=== PATIENT | female | born 1995 | race Caucasian/White ===

== ENCOUNTER 2017-04-03 17:15 | Inpatient (IN) ==
[2017-04-03] MEDS ORDERED: 0.9 % Sodium Chloride 1,000 ML IVC ONE (18:05)
[2017-04-03] MEDS ORDERED: Ondansetron 4 MG/2 ML VIAL IVP ONE ×2 (18:08→20:59)
[2017-04-03] MEDS ORDERED: *HR* Morphine 2 MG/ML SYRINGE IVP ONE (18:08)
[2017-04-03 18:33] LABS: Eosinophils % 0.1 %; Hematocrit 41.1 % (35.3-44.9); Hemoglobin 13.4 g/dL (11.5-15.4); Immature Granulocytes % 0.2 % (0-4); Lymphocytes % 17.3 %; Mean Corpuscular HGB Conc 32.6 g/dL (31.6-35.5); Mean Corpuscular Hemoglobin 29.5 pg (28.0-33.3); Mean Corpuscular Volume 90.3 fL (83.0-100.0); Mean Platelet Volume 10.4 fL (9.4-12.4); Monocytes % 6.1 %; Platelet Count 194 K/mcL (140-400); Red Blood Count 4.55 M/mcL (3.82-4.97); Red Cell Distribution Width 12.7 % (11.5-14.5)
[2017-04-03 18:34] LABS: Basophils % 0.3 %; Lymphocytes # 2.1 K/mcL (0.6-4.6); Monocytes # 0.8 K/mcL (0.0-1.3); Neutrophils # 9.3 K/mcL (1.6-8.9)
--- NOTE | 2017-04-03 18:35 | Emergency Department Note ---
Disposition Clinical Impression: Periorbital cellulitis of right eye Disposition: Admitted As Inpatient Condition: Fair Skin/Abscess/FB HPI Chief complaint: ED General Medical Stated complaint: Right side face swelling Time Seen by Provider: 04/03/17 17:36 Source: patient Mode of arrival: ambulatory Limitations: no limitations Nursing Notes Reviewed: Yes Vital Signs Reviewed: Yes HPI Narrative: Patient is 21 y/o F who presents with right eye swelling. Patient states that 3 days ago, she attempted to pop a pimple on the right side of her superior bridge of her nose and had pus drained from it. Yesterday she attempted to pop the same pimple again but there were no drainage. She admits applying triple antibiotic and over the counter acne cream over her pimple prior to bed. She also admits snorting cocaine at around 5pm yesterday and state that it "is the same cocaine I've been using." She woke up this morning with her right eye swollen shut. She admits that her right eye, right eyelid, and underneath her right eye feels tender and touching it makes it worse. She states that the tenderness is spreading over her nose and to the bottom of her left eye. She denies any fever or any history of abscess or MRSA. She denies any IV drug use. She admits frontal headache that feels like it's pulling on her head. She admits that she can still see out both of her eyes. She denies any difficulty swallowing or breathing, denies shortness of breath, any chest pain, and nausea and vomiting. She denies any numbness or tingling or any weaknesses. Home Medications Medication Instructions Recorded Confirmed No Known Home Drugs 04/03/17 04/03/17 Allergies Allergy/AdvReac Type Severity Reaction Status Date / Time Buspirone [From BuSpar] AdvReac Blurry Verified 11/24/16 23:15 Vision All systems ED: reviewed and negative except as stated. Constitutional: Denies: fever, chills, weakness Eyes: Reports: eye pain, other (Admits prudulent discharge from the pimple on her nose. ). Denies: eye discharge, vision change ENT ED: Denies: ear pain, throat pain, dysphagia Cardiovascular: Denies: chest pain, palpitations Respiratory: Denies: cough, dyspnea, wheezes Gastrointestinal: Denies: abdominal pain, nausea, vomiting, diarrhea, constipation Musculoskeletal: Denies: neck pain Integumentary: Reports: other (Admits Swelling and redness to the right eye and facial cheek. ) Neurological: Reports: headache. Denies: weakness, numbness, paresthesias Past Medical History - Past Medical History Medical history: Reports: no medical history Surgical history: Reports: other Psychiatric history: Reports: anxiety [employer] history: Reports: non-contributory - Social History Smoking Status: Current every day smoker Smokeless Tobacco Status: No Alcohol use: Reports: none Drug use: Reports: marijuana Physical Exam - General Limitations: no limitations General appearance: alert - Eye Eye exam: Present: EOMI, periorbital swelling (on the right side.), periorbital tenderness (on the right side. ), other (Lesion on the right eye Appears erythematous and appears to spread to the left lower eye. Prudulent drainage from the wound on the bridge of the nose.) - ENT ENT exam: normal oropharynx, mucous membranes moist - Neck Neck exam: Present: normal inspection, full ROM. Absent: tenderness, lymphadenopathy - Chest Chest inspection: Present: normal inspection, symmetric chest wall rise - Respiratory Respiratory exam: Present: normal lung sounds bilaterally. Absent: respiratory distress, wheezes - Cardiovascular Cardiovascular exam: Present: tachycardia - Abdominal Exam Abdominal exam: Present: soft, Non-Tender. Absent: tenderness, distention, guarding, rebound, rigidity - Neurological Exam Neurological exam: Present: alert, oriented X3 Course Vital Signs Temperature 99.1 F 04/03/17 17:31 Pulse Rate 110 04/03/17 17:31 Respiratory Rate 14 04/03/17 17:31 Blood Pressure 117/68 04/03/17 17:31 O2 Sat by Pulse Oximetry 99 04/03/17 17:31 Temperature 99.1 F 04/03/17 17:31 Pulse Rate 110 04/03/17 17:31 Respiratory Rate 14 04/03/17 17:31 Blood Pressure 117/68 04/03/17 17:31 O2 Sat by Pulse Oximetry 99 04/03/17 17:31 Oxygen Delivery Oxygen Delivery Room Air Skin/Abscess/Foreign Body - MDM Narrative Medical decision making narrative: Patient is a 21 y/o F who presents with right eye swelling that started this morning after purulent discharge from her nose pimple for the past 3 days. She is tachycardic but afebrile. Physical exam shows erythema and swelling on the right eye consistent with periorbital cellulitis with purulent discharge from a wound on the right lateral side of the bridge of her nose. EOMI with no pain on ocular movement. Labs pending and CT of orbit pending. Labs showed elevated WBC of 12.[address] of the orbit showed Acute preseptal right periorbital cellulitis with no evidence of abscess. Patient is given one dose of vancomycin and Zoysn in the ED. Plan to admit patient. Discussed with the patient about the plan and she agrees. Waiting on hospitalist to call. 21:17- Spoke with Dr. Torres and discussed the patient. Dr. Torres agrees to accept the patient. - Medical Records Medical records reviewed: Yes I reviewed the patient's medical records. - Lab Data Lab results reviewed: Yes I reviewed the patient's lab results. Result diagrams: 04/03/17 18:27 04/03/17 18:27 Lab Results 04/03/17 04/03/17 04/03/17 Range/Units 18:27 18:27 18:37 WBC 12.3 H (4.3-11.1) K/mcL RBC 4.55 (3.82-4.97) M/mcL Hgb 13.4 (11.5-15.4) g/dL Hct 41.1 (35.3-44.9) % MCV 90.3 (83.0-100.0) fL MCH 29.5 (28.0-33.3) pg MCHC 32.6 (31.6-35.5) g/dL RDW 12.7 (11.5-14.5) % Plt Count 194 (140-400) K/mcL MPV 10.4 (9.4-12.4) fL Immature Gran % 0.2 (0-4) % Seg Neutrophils % 76.0 % Lymphocytes % 17.3 % Monocytes % 6.1 % Eosinophils % 0.1 % Basophils % 0.3 % Neutrophils # 9.3 H (1.6-8.9) K/mcL Lymphocytes # 2.1 (0.6-4.6) K/mcL Monocytes # 0.8 (0.0-1.3) K/mcL Eosinophils # 0.0 (0.0-0.6) K/mcL Basophils # 0.0 (0.0-0.2) K/mcL Sodium 138 (136-145) mEq/L Potassium 3.8 (3.5-4.5) mEq/L Chloride 107 (98-109) mEq/L Carbon Dioxide 24 (19-29) mEq/L BUN 13 (7-20) mg/dL Creatinine 0.82 (0.57-1.11) mg/dL Est GFR ( Amer) > 60 (> 60) Est GFR (Non-Af Amer) > 60 (> 60) BUN/Creatinine Ratio 16 (6-26) Glucose 97 (70-99) mg/dL Calculated Osmolality 286 (280-300) Calcium 9.5 (8.6-10.8) mg/dL Urine Test Negative (Negative) - Radiology Data Radiology results reviewed: Yes I reviewed the patient's radiology results. Orbit CT 04/03/17 18:06 IMPRESSION: Findings of acute preseptal right periorbital cellulitis. No evidence of abscess or postseptal involvement. D/ / Ashish Nunn MD / Ashish Nunn MD Interpreting Provider: Ashish Nunn MD Attestation Statement - Attestation Attestation: I examined this patient and my medical decision-making was reviewed with the Resident Physician, Dr. Chung. I agree with the documented findings, disposition and treatment plan as described except to the extent set forth below. Patient is a 21-year-old white female otherwise healthy presents to the emergency department today with right periorbital swelling and pain. Patient has a history of substance abuse specifically cocaine, and states that she developed a pimple on the right aspect of her proximal nasal bridge which she popped a few days ago with small amount of drainage. Patient states that she attempted to do this again yesterday without drainage and upon waking this morning noticed significant periorbital swelling, erythema and I was swollen shut. Patient was having pain and tenderness throughout her eyelids and very orbital area no drainage from the medial canthus was noted. No spontaneous drainage from the area of the original pimple. Patient denies any fevers or chills, no sinus pain or pressure, no sore throat or difficulty swallowing or managing secretions. Patient denies any other associated symptoms. Patient denies any visual changes just difficulty opening her right eye. I agree with patient's physical exam findings as documented. Vital signs are stable and she was in no acute distress on arrival. Patient's symptoms were concerning for possible orbital cellulitis. We proceeded by initiating an IV including full lab evaluation, and CT imaging of her orbits. Patient has an elevated white count with a left shift, remainder of labs are within normal limits. Patient's CT with contrast shows evidence of preseptal cellulitis but no post-septal cellulitis or abscess. Clinical symptoms appear to be spreading also to the left inferior orbital area. We initiated IV antibiotics within the emergency department and feels she would be best served observed overnight to ensure some clinical improvement on IV antibiotics. Patient agrees with this plan and case was discussed with the hospitalist who accepted the patient for admission.
[2017-04-03 18:50] LABS: BUN/Creatinine Ratio 16 (6-26); Blood Urea Nitrogen 13 mg/dL (7-20); Calcium 9.5 mg/dL (8.6-10.8); Carbon Dioxide 24 mEq/L (19-29); Chloride 107 mEq/L (98-109); Glucose 97 mg/dL (70-99); Osmolality,Calculated 286 (280-300); Potassium 3.8 mEq/L (3.5-4.5); Sodium 138 mEq/L (136-145); eGFR For African Americans > 60 (> 60); eGFR For Non-African Americans > 60 (> 60)
[2017-04-03] MEDS ORDERED: Vancomycin 1,000 MG in D5% in Water 250 ML IVPB ONE (20:07)
[2017-04-03] MEDS ORDERED: Piperacillin/Tazobactam 3.375 GM in D5% in Water (Mini-Bag+) 100 ML IVPB ONE (20:07)
[2017-04-03] MEDS ORDERED: *HR* HYDROmorphone (PF) 1 MG/ML SYRINGE IVP ONE (20:59)
[2017-04-04] MEDS ORDERED: Naloxone 0.4 MG/ML INJ IVP PRN (03:14)
[2017-04-04] MEDS ORDERED: Acetaminophen 325 MG TABLET PO PRN (03:14)
[2017-04-04] MEDS ORDERED: Ondansetron 4 MG/2 ML VIAL IVP PRN (03:14)
[2017-04-04] MEDS ORDERED: 0.9 % Sodium Chloride w KCl 20 MEQ/1,000 ML MLS IVC SCH (03:15)
--- NOTE | 2017-04-04 03:23 | Internal Med History&Physical ---
Date of Encounter: 04/04/17 Time of Encounter: 02:00 Assessment and Plan (1) Preseptal cellulitis of right eye Current visit: Yes Status: Acute 1. Will continue with IV Vancomycin and Zosyn. 2. Follow cultures and clinically. 3. If condition worsens, she'll need ENt consultation and/or opthalmology consultation. 4. Will schedule antihistamines. (2) DVT prophylaxis Current visit: Yes Status: Acute 1. EPCD's. Internal Medicine - H&P: HPI Chief complaint: right facial swelling/cellulitis Admitted From: Emergency Dept Plans for Post Hospital Care: Home History of present illness: Ms. Lee is a 21 year old female who presents with a 3 day history of redness , swelling, warmth, and obstruction of her vision of the right eye. She had a pimple on her right medial nasal bridge she tried to pop the other day. She later developed some redness, swelling, and cellulitis type symptoms the next day. This again became occluded and she tried to pop it again. Her cellulitis worsened, and her eyelid close shut, thus obstructing her right eye vision. She came to the ER where she was evaluated and had a CT scan of the head confirming preseptal cellulitis. There was no evidence for orbital involvement. She was subsequently admitted to the hospitalist service. Upon my assessment of the patient, she confirms the above history. She denies any ill contacts, prior cellulitis, prior MRSA infections, or any drug use. However, she confirmed to her nurse earlier in the evening that she did use cocaine recently. Nursing staff reported this information to me, but patient denied any such use. She does have a history of allergies and sinus congestion. She used to take allergy shots but quit about a year ago. She does not take any chronic medications presently. Past Med Surg Social Fam HX - Past Medical History Attestation: Yes The following information was validated with the patient. Source: patient Medical history: no medical history Psychiatric history: anxiety - Past Surgical History Surgical History: other (umbilical hernia repair) - Social History Smoking Status: Current every day smoker Packs per day: 1 Smokeless Tobacco Status: No Alcohol use: none Drug use: cocaine Current living situation: Home - Independent Activity Level: Independent ambulation Recent Out of Country Travel Within the Last 8 Weeks: No - Family History Mother History Unknown: Yes Father History Unknown: Yes Internal Medicine - H&P: Meds No Known Home Drugs 04/03/17 [History] 3 Allergy/AdvReac Type Severity Reaction Status Date / Time Buspirone [From BuSpar] AdvReac Blurry Verified 11/24/16 23:15 Vision - Constitutional Constitutional: no chills, no fever(s), no night sweats - EENT Eyes: other visual disturbances (as noted in [facility]), no blurry vision, no change in vision Ears: no ear pain, no tinnitus Nose, mouth and throat: nasal congestion, sinus pressure, no nasal discharge, no post-nasal drip, no sore throat - Cardiovascular Cardiovascular ROS IM: no chest pain, no diaphoresis, no dyspnea - Respiratory Respiratory: no cough, no dyspnea, no hemoptysis - Gastrointestinal Gastrointestinal: no abdominal pain, no diarrhea, no nausea, no vomiting - Genitourinary Genitourinary: no dysuria, no flank pain - Musculoskeletal Musculoskeletal ROS IM: no arthralgias, no back pain - Integumentary Integumentary IM: rash (right facial redness and swelling) - Neurological Neurological ROS: no focal weakness, no headache(s), no numbness - Psychiatric Psychiatric: no anxiety, no depression - Endocrine Endocrine IM: no polydipsia, no polyuria - Allergic/Immunologic Allergic/Immunologic: no wheezing, no GI upset with certain foods - Constitutional Vitals: Temp Pulse Resp BP Pulse Ox 99.2 F 61 16 93/60 98 04/04/17 01:20 04/04/17 01:20 04/04/17 01:20 04/04/17 01:20 04/04/17 01:20 General appearance: Present: cooperative, A&O X 3, pleasant, no acute distress - Head Head exam: Present: atraumatic - Eye Eye exam: Present: EOMI. Absent: scleral icterus Additional comments: Right eye not visualized due to periorbital edema and cellulitis. - ENT ENT exam: Present: mucous membranes dry, normal oropharynx Additional comments: Redness, swelling, and warmth to her right periorbital area and medial nasal bridge; pimple on right medial nasal bridge. - Neck Neck exam general surgery: Present: full ROM, lymphadenopathy, supple. Absent: tenderness - Respiratory Respiratory exam: Present: CTAB. Absent: rales, respiratory distress, rhonchi, wheezes - Cardiovascular Cardiovascular exam: Present: RRR, +S1, +S2. Absent: diastolic murmur, systolic murmur - GI/Abdominal GI/Abdominal exam: Present: normal bowel sounds, soft. Absent: hepatomegaly, splenomegaly, tenderness - Extremities Exam Extremities exam: Present: full ROM, warm. Absent: calf tenderness, tenderness - Back Exam Back exam: Absent: CVA tenderness (L), CVA tenderness (R) - Neurological Exam Neurological exam: Present: alert, CN II-XII intact, oriented X3, no focal deficits - Psychiatric Psychiatric exam: Present: normal affect, normal mood - Skin Skin exam: Present: dry, warm Additional comments: Redness, swelling, and warmth to right kelli-orbital and right medial nasal bridge as noted above Internal Med - H&P Results - Labs CBC & Chem 7: 04/03/17 18:27 04/03/17 18:27 - Diagnostic Studies Other Images Status: image reviewed by me (CT Orbits: image sviewed and radiology report reviewed -- preseptal cellulitis)
[2017-04-04] MEDS ORDERED: Vancomycin 1,000 MG in D5% in Water 250 ML IVPB SCH (04:00)
[2017-04-04] MEDS: Loratadine 10 MG TABLET PO SCH ×2 (05:22→08:22)
[2017-04-04 05:53] LABS: Basophils % 0.2 %; Eosinophils # 0.1 K/mcL (0.0-0.6); Eosinophils % 0.9 %; Hematocrit 39.7 % (35.3-44.9); Immature Granulocytes % 0.2 % (0-4); Lymphocytes % 16.9 %; Mean Corpuscular HGB Conc 32.7 g/dL (31.6-35.5); Mean Corpuscular Hemoglobin 30.2 pg (28.0-33.3); Mean Corpuscular Volume 92.1 fL (83.0-100.0); Mean Platelet Volume 10.8 fL (9.4-12.4); Monocytes # 0.9 K/mcL (0.0-1.3); Platelet Count 187 K/mcL (140-400); Red Blood Count 4.31 M/mcL (3.82-4.97); Red Cell Distribution Width 12.7 % (11.5-14.5); Segmented Neutrophils % 74.8 %
[2017-04-04 06:16] LABS: Alanine Aminotransferase 10 Units/L (0-55); Albumin 3.4 g/dL (3.5-5.0); Alkaline Phosphatase 53 Units/L (38-126); Aspartate Amino Transferase 15 Units/L (5-34); BUN/Creatinine Ratio 18 (6-26); Bilirubin,Total 0.7 mg/dL (0.2-1.2); Blood Urea Nitrogen 14 mg/dL (7-20); Carbon Dioxide 25 mEq/L (19-29); Chloride 106 mEq/L (98-109); Globulin 3.5 g/dL (2.4-3.5); Glucose 93 mg/dL (70-99); Magnesium 1.7 mg/dL (1.6-2.6); Osmolality,Calculated 284 (280-300); Sodium 137 mEq/L (136-145); Total Protein 6.9 g/dL (6.0-8.3); eGFR For African Americans > 60 (> 60); eGFR For Non-African Americans > 60 (> 60)
[2017-04-04] MEDS: Piperacillin/Tazobactam 3.375 GM in D5% in Water (Mini-Bag+) 100 ML IVPB SCH ×2 (08:19→16:02)
[2017-04-04] MEDS ORDERED: 0.9 % Sodium Chloride 1,000 ML IVC ONE (08:39)
[2017-04-04] MEDS ORDERED: Famotidine 20 MG TABLET PO SCH (09:00)
[2017-04-04] MEDS ORDERED: Vancomycin 1,250 MG in D5% in Water 250 ML IVPB SCH (09:00)
--- NOTE | 2017-04-04 09:15 | Event Note ---
<KaliRachel H - Last Filed: 04/04/17 15:44> Date of Encounter: 04/04/17 Time of Encounter: 09:12 Patient admitted after midnight for preseptal cellulitis of her right eye. Patient's white blood cell has slightly decreased from 12.5 in the ER at 12.1 this morning. Patient states her infection has spread down the right side of her cheek, and she believes she is becoming more swollen on her left face. Upon physical examination, there is a closed wound over her right nasal bridge with significant edema and erythema surrounding her eye with radiation down her cheek. Her left palpebral fissures show edema, yet no erythema. Patient denies any fevers. Patient does state she has a regular inhaled cocaine user. Patient does find relief from manually expressing yellow discharge from the wound that is currently scabbed over. Patient is able to move her eyes in all directions without any pain. Her extraocular movements are intact with no. Her conjunctiva are clear. Because the inflammation had spread to the left side of her face, we decided to consult ophthalmology. Our assessment and plan are as follows: -continue IV Clindmycin and Zosyn for right sided preseptal and facial cellulitis. -Per ophthalmology, after patient has improved clinically, will discharge home with oral antibiotics with instructions to follow-up with Dr. Zimmerman the supervisor reactor fueling in his office. -give pain medication, and monitor closely for clinical improvement. -DVT prophylaxis with IPCD's. <Juan Romano - Last Filed: 04/04/17 15:55> Date of Encounter: 04/04/17 I independently saw and examined this patient on 04/04/2017, I have reviewed his chart as well. Diagnoses and management plan was discussed with the patient, and the resident physician. 21F with polysubstance abuse including cocaine/THC, admitted for preseptal cellulitis. R eye is intact and extraocular movement is intact. At time of review, patient says her swelling is reducing and she is now able to open her R eye. She is not septic. Physical exam: VSS. Not in distress. She continues to clean her R paranasal discharging punctum with the same tissue paper she is using to clean her normal L eye. She has a swollen and tender R eyelids/cheek and cheek. She also has swollen L periorbital region. Her conjunctiva is clear, her sclera is white, her anterior chamber is clear and her orbit is mobile. Chest is CTAB, Abdomen is soft and not tender, extremities with no edema Labs and Imaging reviewed: Leukocytosis stable, Chem WNL. Orbit CT noted. A/P #Pre-septal cellulitis with abscess: Continue IV Zosyn, add Clindamycin, NSAID to decrease inflammation. No clinical and radiological evidence of Orbital cellulitis at this time. We have informed the supervisor reactor fueling who will be consulted rapidly should there be a decline. Abscess is draining spontaneously, no indication for surgery at this time #Cocaine/THC/Tobacco abuse: SW eval. Monitor for withdrawal. Rest of details as in resident physicians documentation
[2017-04-04] MEDS ORDERED: *HR* Morphine 2 MG/ML SYRINGE IVP PRN (10:09)
[2017-04-04] MEDS ORDERED: Ketorolac 30 MG/ML VIAL IVP PRN (10:46)
[2017-04-04] MEDS: 0.9 % Sodium Chloride 1,000 ML IVC SCH ×2 (11:14→16:50)
--- NOTE | 2017-04-04 13:00 | Internal Medicine Consult Note ---
Date of Encounter: 04/04/17 Time of Encounter: 12:59 Internal Medicine - CN: HPI - Data of Consult Requesting Physician: Juan Romano MD - Consult Narrative Reason for consult: right preseptal cellulitis History of present illness: Ms. Lee is a 21 year old female with right sided preseptal cellulitis. She reports swelling of the eyelids of the right eye for the past 2 days which has now spread to involve the left side of the face. Patient reports pain of 5/10. She reports good vision in both eyes and denies diplopia. She reports that she was on no prescribed medicines prior to admission to this facility. Examination: exernal prominent swelling of the right upper and lower eyelids with excoriation of the skin on her right nasal bridge. there is mild swelling of the left side of the face. Confrontation visual spears were normal for each eye. Ocular motility testing revealed full excursions of both eyes to all cardinal positions of gaze Eyelids: as reported above. Pupils: equal, round and reactive to light. Conjunctiva: normal OD & OS Cornea: clear and normal OD & OS Anterior chamber: grade 2 depth / clear OD & OS Iris: normal OD & OS Lens: normal OD & OS Optic disc: normal, cup to disc ratio 0.2 OD & OS Impression: Right sided preseptal (eyelid) and facial cellulitis Recommendation: continue IV clindamycin and Zocin and follow with oral antibiotics at discharge Please schedule patient to be seen in my office after discharge. Past Med Surg Social Fam HX - Past Medical History Medical history: no medical history Psychiatric history: anxiety - Past Surgical History Surgical History: other (umbilical hernia repair) - Social History Smoking Status: Current every day smoker Packs per day: 1 Smokeless Tobacco Status: No Alcohol use: none Drug use: cocaine - Family History Mother History Unknown: Yes Father History Unknown: Yes Internal Medicine - CN: Meds No Known Home Drugs 04/03/17 [History] 3 Allergy/AdvReac Type Severity Reaction Status Date / Time Buspirone [From BuSpar] AdvReac Blurry Verified 11/24/16 23:15 Vision Internal Medicine - CN: Exam - Constitutional Vitals: Temp Pulse Resp BP Pulse Ox 97.9 F 92 15 93/59 95 04/04/17 10:53 04/04/17 10:53 04/04/17 10:53 04/04/17 10:53 04/04/17 10:53 Internal Medicine - CN: Reslt - Labs CBC & Chem 7: 04/04/17 05:32 04/04/17 05:32 Labs: Short CBC 04/04/17 Range/Units 05:32 WBC 12.1 H (4.3-11.1) K/mcL Hgb 13.0 (11.5-15.4) g/dL Hct 39.7 (35.3-44.9) % Plt Count 187 (140-400) K/mcL Neutrophils # 9.0 H (1.6-8.9) K/mcL BMP 04/04/17 05:32 Sodium 137 Potassium 4.0 Chloride 106 Carbon Dioxide 25 BUN 14 Creatinine 0.80 Glucose 93 Calcium 9.0 Liver Function 04/04/17 Range/Units 05:32 Total Bilirubin 0.7 (0.2-1.2) mg/dL AST 15 (5-34) Units/L ALT 10 (0-55) Units/L Alkaline Phosphatase 53 (38-126) Units/L Albumin 3.4 L (3.5-5.0) g/dL Consult Discharge Plan - Plan Referrals: Alejandra Pearson, [employer] [Primary Care Provider] -
[2017-04-04 15:41] VITALS: BP 108/65
[2017-04-04] MEDS ORDERED: Aminoglycoside Consult 1 EACH MC ONE (19:12)
--- NOTE | 2017-04-05 08:45 | Event Note ---
Date of Encounter: 04/05/17 Time of Encounter: 08:38 21 F admitted for preseptal cellulitis, she left AMA last night I spoke to her mother, [phone] Ines. Apparently she was informed by her daughter that she was "released" for 24 hours and to return "whenever" Her preliminary wound culture is growing Staph aureus I have informed the patient's mother, whose cell phone is the only contact on the chart of the need for antibiotic coverage for at least 10 days She stated she is taking the patient to her PCP this morning, she was able to verbally repeat my information to her and understands the consequences of possible spread of the cellulitis with abscess to the whole face, progression to orbital cellulitis, sepsis, and shock, possible .
== END 2017-04-04 19:13 | disposition left against medical advice (07) | DRG 383 ==
LOC: 3ANU 17:15 → EMEROO 17:15 → 3ANU 22:28
PROVIDERS: ADMIT Family Medicine; ATTEND Internal Medicine